=== PATIENT | male | born 1965 | race Caucasian/White ===

== ENCOUNTER 2019-09-05 05:35 | Outpatient (CLI) | payer BC ==
[~2019-09-05] VITALS: Ht 182.9 cm; Wt 95.5 kg
== END 2019-09-05 12:43 | disposition home or self-care (01) ==
LOC: PREOP 05:35
PROVIDERS: ATTEND Surgery
DX: Z01.818 Encounter for other preprocedural examination (principal)

== ENCOUNTER 2020-09-03 05:28 | Outpatient (CLI) | payer BC ==
[~2020-09-03] VITALS: Ht 182.9 cm; Wt 95.3 kg
== END 2020-09-03 09:49 ==
LOC: PREOP 05:28
PROVIDERS: ATTEND Surgery
DX: Z01.812 Encounter for preprocedural laboratory examination (principal); Z12.11 Encounter for screening for malignant neoplasm of colon; Z20.822 Contact with and (suspected) exposure to COVID-19; Z86.010 Personal history of colon polyps
CPT/HCPCS: 87635

== ENCOUNTER 2020-09-06 09:47 | Day surgery (SDC) | payer BC ==
[~2020-09-06] VITALS: Ht 180.3 cm; Wt 99.3 kg
[2020-09-06 09:50] VITALS: BP 143/97
[2020-09-06] MEDS ORDERED: LACTATED RINGERS 1,000 ML IV ONE (09:51)
--- NOTE | 2020-09-06 10:28 | Progress Note-Pre Operative ---
Pre-Operative Progress Note H&P Reviewed The H&P was reviewed, patient examined and no changes noted. Time Seen by Provider: 10:25 Date H&P Reviewed: Sep 06, 2020 Time H&P Reviewed: 10:26 Pre-Operative Diagnosis: Hx of Colon polyps REVA MADRIGAL DO Sep 06, 2020 10:27
[2020-09-06] MEDS ORDERED: LACTATED RINGERS 1,000 ML IV SCH (10:45)
[2020-09-06] MEDS ORDERED: MIDAZOLAM 2 MG/2 ML (VERSED) VIAL ONE (11:17)
[2020-09-06] MEDS ORDERED: PROPOFOL INJECTION 50 ML IV ONE ×2 (11:17→11:34)
[2020-09-06 12:00] VITALS: BP 103/65
--- NOTE | 2020-09-06 12:00 | Progress Note-Post Operative ---
Post-Operative Progess Note Surgeon (s)/Attendant Honor Bar (s) Surgeon REVA MADRIGAL DO Attendant Honor Bar: YAIR Molina Pre-Operative Diagnosis Hx of Colon polyps Post-Operative Diagnosis Polyps diverticula internal hemorrhoids Procedure & Operative Findings Date of Procedure 09/06/20 Procedure Performed/Findings Colon with snare Colon with hot bx Anesthesia Type IV sedation by ELECTRICAL LINE MECHANIC Estimated Blood Loss Estimated blood loss (mL): scant Specimens/Packing Specimens Removed Transverse Cecum Ascending Sigmoid REVA MADRIGAL DO Sep 06, 2020 12:00
--- NOTE | 2020-09-06 12:01 | Endoscopy Discharge Instruct ---
Endo Procedure/Findings Findings 1.: Polyp 2.: Diverticulosis 3.: Internal Hemorrhoids Discharge Instructions - Activity: You might feel a little sleepy until tomorrow. This is due to the medicine you received to relax you. Until tomorrow, you should: NOT drive a car, operate machinery or power tools. NOT drink any alcoholic beverages. NOT make any important decisions or sign importortant papers. Do not return to work until tomorrow, unless otherwise instructed. Resume previous activities tomorrow. Diet: Start by taking liquids. If you tolerate liquids, advance to solid food. 1.: Colonscopy in 3 years Notify Physician - If you experience excessive bleeding, unusual abdominal pain, fever, or chest pain, contact your doctor immediately. REVA MADRIGAL DO Sep 06, 2020 12:00
[2020-09-06 12:05] VITALS: BP 105/64
--- NOTE | 2020-09-06 12:08 | Anesthesia-General Post-Op ---
MAC Patient Condition Mental Status/LOC: Same as Preop Cardiovascular: Satisfactory Nausea/Vomiting: Absent Respiratory: Satisfactory Pain: Controlled Complications: Absent Post Op Complications Complications None Follow Up Care/Instructions Patient Instructions None needed. Anesthesiology Discharge Order Discharge Order Patient is doing well, no complaints, stable vital signs, no apparent adverse anesthesia problems. No complications reported per nursing. DUNIA WOLFE CRNA Sep 06, 2020 12:08
[2020-09-06 12:15] VITALS: BP 90/63
[2020-09-06 12:45] VITALS: BP 110/68
[2020-09-06 12:50] VITALS: BP 110/68
--- NOTE | 2020-09-06 19:28 | OPERATIVE REPORT ---
DATE OF SERVICE: 09/06/2020 PREOPERATIVE DIAGNOSIS: History of colon polyps. POSTOPERATIVE DIAGNOSES: Colon polyps, diverticula, internal hemorrhoids, AVMs. PROCEDURE: 1. Colonoscopy with snare polypectomy. 2. Colonoscopy with hot biopsy. SURGEON: Maksim Hendrix DO ASSISTED LIVING NURSING DIRECTOR: RICKEY Schuster. ANESTHESIA: IV sedation by the MARKETING CONTENT COORDINATOR. SPECIMEN: Polyp from the transverse colon, one biopsy of a polyp from the cecum, colon polyp ascending colon near the area of previous tattoo and then another colon polyp from the sigmoid colon. BLOOD LOSS: Scant. FLUIDS: Per anesthesia. POSTOPERATIVE CONDITION: Stable. INDICATION FOR PROCEDURE: The patient is a 55-year-old male who had a colonoscopy last year, had a large polyp removed in 3 or 4 pieces as well as multiple other polyps, needed a repeat colonoscopy. FINDINGS: The patient had multiple polyps at least 4. He also had an AVM, which was actually seen on last colonoscopy. He had diverticula and internal hemorrhoids. PROCEDURE NOTE: After informed consent was obtained, the patient was brought to the endoscopy suite, placed in bed in left lateral decubitus position. He was administered IV sedation by the MARKETING CONTENT COORDINATOR who then monitored his vitals the entire time, heart rate, blood pressure and pulse ox. The scope was inserted. On the way in, noted diverticula, took a picture of these and then continued in, took a picture of the AVM as well. In the transverse colon, saw a colon polyp, did a snare polypectomy, able to remove this, continued on to the cecum, took a picture of appendiceal orifice and then just inside the cecum, saw another flat polyp, tried to snare, but unable to because unable to get around it, so I elected to do a hot biopsy to get two good pieces and almost completely removed this and then slowly withdrew the scope insufflating, looked circumferentially at the davies looking the cecum, up the ascending colon to the hepatic flexure and in the ascending colon, saw another polyp near the site of previous tattoo and able to get a snare around this and removed it, continued to the hepatic flexure, then down the transverse colon, splenic flexure, into the descending colon down into the sigmoid. In the sigmoid, saw another polyp, did another snare polypectomy and then continued down into the rectum, retroflexed in rectal vault, saw some internal hemorrhoids, took a picture and then removed the scope. The patient tolerated the procedure and recovered in endoscopy suite. Job ID: [id number] DocumentID: [id number] Dictated Date: 09/06/2020 15:57:07 Sterile Instrument Technician Date: 09/06/2020 19:27:41 Dictated By: MAKSIM HENDRIX DO
== END 2020-09-06 12:50 | disposition home or self-care (01) ==
LOC: ENDO 09:47
PROVIDERS: ATTEND Surgery
DX: D12.0 Benign neoplasm of cecum (principal); D12.2 Benign neoplasm of ascending colon; K63.5 Polyp of colon; K57.30 Diverticulosis of large intestine without perforation or abscess without bleeding; K64.8 Other hemorrhoids; Q27.30 Arteriovenous malformation, site unspecified; K21.9 Gastro-esophageal reflux disease without esophagitis; F17.210 Nicotine dependence, cigarettes, uncomplicated; Z86.010 Personal history of colon polyps
CPT/HCPCS: 88305